=== PATIENT | male | born 1965 | race Two or more races ===

== ENCOUNTER 2022-05-06 14:10 | Emergency (ER) | payer OTHER ==
[~2022-05-06] VITALS: Ht 165.1 cm; Wt 79.8 kg
[2022-05-06] MEDS ORDERED: NORFLEX100MG PO (14:27)
== END 2022-05-06 21:58 | disposition home or self-care (01) ==
LOC: ER 14:10
DX: J06.9 Acute upper respiratory infection, unspecified (principal)

== ENCOUNTER 2023-09-15 10:31 | Emergency (ER) | payer OTHER ==
[~2023-09-15] VITALS: Ht 160 cm; Wt 93.0 kg
[~2023-09-15 10:31] MED LIST: NORFLEX100MG PO
[2023-09-15] MEDS ORDERED: ZESTRIL5 MG (10:37)
[2023-09-15] MEDS ORDERED: ATORVASTATIN CA20 MG (10:37)
[2023-09-15 12:11] LABS: HEMATOCRIT 45.7 % (39.0-48.0); HEMOGLOBIN 15.5 g/dL (13-16.00); MEAN CELL VOLUME 83.9 fL (80.0-100.00); MEAN CORPUSCULAR HEMOGLOBIN 28.5 pg (27.00-32.0); PLATELET COUNT 202 K/uL (150-450); RED BLOOD COUNT 5.44 M/uL (4.00-6.00); RED CELL DISTRIBUTION WIDTH 13.8 % (11.5-14.5)
[2023-09-15 12:30] LABS: BILIRUBIN TOTAL 0.9 mg/dL (0.3-1.2); BILIRUBIN,CONJUGATED 0.21 mg/dL (0.0-0.2); BILIRUBIN,UNCONJUGATED 0.69 mg/dL (0.0-0.6); CALCIUM 9.8 mg/dL (8.5-10.1); CREATININE SERUM 1.09 mg/dL (0.70-1.30); GFR 69.98; POTASSIUM 4.87 mEq/L (3.5-5.1); TOTAL PROTEIN 8.4 gm/dL (6.4-8.2)
[2023-09-15 13:01] LABS: PH,URINE 5.5 (5.0-8.0); URINE APPEARANCE Clear; URINE BILIRRUBIN Negative (NEGATIVE); URINE BLOOD Negative; URINE COLOR Yellow; URINE GLUCOSE Negative (NEGATIVE); URINE LEUKOCYTE Negative; URINE NITRATE Negative; URINE PROTEIN Negative (NEGATIVE); URINE UROBILINOGEN 0.2 E.U./dl
[2023-09-15 13:31] LABS: URINE BACTERIA 2.5 uL (0.0-1933); URINE EPITHELIAL CELLS 1.3 uL (0.0-38.8); URINE WBC 1.5 uL (0.0-23.2)
[2023-09-15] MEDS ORDERED: MEDROLPACK PO (17:50)
== END 2023-09-15 18:12 | disposition home or self-care (01) ==
LOC: ER 10:32
PROVIDERS: General Practice
DX: S93.402A Sprain of unspecified ligament of left ankle, initial encounter (principal); X58.XXXA Exposure to other specified factors, initial encounter; Y93.89 Activity, other specified; Y92.89 Other specified places as the place of occurrence of the external cause; Y99.9 Unspecified external cause status; R10.13 Epigastric pain; Z88.6 Allergy status to analgesic agent

== ENCOUNTER 2024-04-27 12:29 | Emergency (ER) | payer OTHER ==
[~2024-04-27] VITALS: Ht 165.1 cm; Wt 88.9 kg
[~2024-04-27 12:29] MED LIST changes: +ATORVASTATIN CA20 MG; +MEDROLPACK PO; +ZESTRIL5 MG
[2024-04-27 12:53] VITALS: BP 105/70; O2SAT 100
[2024-04-27 14:13] LABS: HEMATOCRIT 41.7 % (39.0-48.0); HEMOGLOBIN 13.8 g/dL (13-16.00); MEAN CELL VOLUME 83.3 fL (80.0-100.00); MEAN CORPUSCULAR HEMOGLOBIN 27.5 pg (27.00-32.0); PLATELET COUNT 159 K/uL (150-450); RED CELL DISTRIBUTION WIDTH 14.4 % (11.5-14.5)
[2024-04-27 14:38] LABS: CALCIUM 9.1 mg/dL (8.5-10.1); CREATININE SERUM 1.16 mg/dL (0.70-1.30); GFR 64.89; POTASSIUM 4.45 mEq/L (3.5-5.1)
[2024-04-27 14:42] LABS: PH,URINE 7.5 (5.0-8.0); URINE APPEARANCE Clear; URINE BILIRRUBIN Negative (NEGATIVE); URINE BLOOD Negative; URINE COLOR Yellow; URINE GLUCOSE Negative (NEGATIVE); URINE KETONE Trace (NEGATIVE); URINE LEUKOCYTE Trace; URINE NITRATE Negative; URINE PROTEIN Negative (NEGATIVE)
[2024-04-27 14:46] LABS: URINE BACTERIA 13.8 uL (0.0-1933); URINE EPITHELIAL CELLS 2.7 uL (0.0-38.8); URINE WBC 2.3 uL (0.0-23.2)
[2024-04-27 14:53] LABS: URINE RBC 1.6 uL (0.0-20.8)
[2024-04-27] MEDS ORDERED: DEXAMETHASONE SODIUM PHOSPHATE 4 MG/ML VIAL IM STA (15:12)
[2024-04-27] MEDS ORDERED: ORPHENADRINE CITRATE 30 MG/ML AMPUL IM STA (15:12)
== END 2024-04-27 15:39 | disposition home or self-care (01) ==
LOC: ER 12:29
PROVIDERS: General Practice
DX: M54.9 Dorsalgia, unspecified (principal); R10.31 Right lower quadrant pain; Z88.6 Allergy status to analgesic agent